=== PATIENT | male | born 1965 | race Caucasian/White ===

== ENCOUNTER 2024-10-12 15:18 | Outpatient (CLI) | payer OTHER | END 2024-10-12 15:19 | disposition home or self-care (01) | LOC: CSHWCC 15:18 | PROVIDERS: ATTEND Nurse Practitioner Family | DX: T81.329D Deep disruption or dehiscence of operation wound, unspecified, subsequent encounter (principal) | CPT/HCPCS: 97605; 99213; G0463 ==

== ENCOUNTER → 2024-11-05 | Outpatient (CLI) | payer OTHER | LOC: CSHWCC 13:00 | PROVIDERS: ATTEND Nurse Practitioner Family | DX: T81.329D Deep disruption or dehiscence of operation wound, unspecified, subsequent encounter (principal) | CPT/HCPCS: 11043; 11046 ==

== ENCOUNTER 2024-11-13 16:04 | Outpatient (CLI) | payer OTHER | END 2024-11-13 16:05 | disposition home or self-care (01) | LOC: CSHWCC 16:04 | PROVIDERS: ATTEND Nurse Practitioner Family | DX: T81.329D Deep disruption or dehiscence of operation wound, unspecified, subsequent encounter (principal) | CPT/HCPCS: 11042; 11045 ==

== ENCOUNTER 2024-11-19 14:25 | Outpatient (CLI) | payer OTHER | END 2024-11-19 14:26 | disposition home or self-care (01) | LOC: CSHWCC 14:25 | PROVIDERS: ATTEND Nurse Practitioner Family | DX: T81.329D Deep disruption or dehiscence of operation wound, unspecified, subsequent encounter (principal) ==